=== PATIENT | male | born 1970 | race Caucasian/White ===

== ENCOUNTER 2016-06-04 18:25 | Inpatient (IN) | payer OTHER ==
[~2016-06-04] VITALS: Ht 167.6 cm; Wt 57.0 kg
[2016-06-04] MEDS ORDERED: PHEN100C4 PO (18:58)
[2016-06-04] MEDS ORDERED: THIA100T10 PO (18:58)
[2016-06-04] MEDS ORDERED: ATEN25TA PO (18:58)
[2016-06-04] MEDS ORDERED: MULT-82 PO (18:58)
[2016-06-04] MEDS ORDERED: NAPR220T77 PO (18:58)
[2016-06-04] MEDS ORDERED: LISI-170 PO (18:58)
[2016-06-04] MEDS ORDERED: OMEP-110 PO (18:58)
[2016-06-04] MEDS ORDERED: FOLI-17 PO (18:58)
[2016-06-04] MEDS ORDERED: KETOROLAC 30 MG/1 ML IM ONE (19:00)
[2016-06-04] MEDS ORDERED: CYCLOBENZAPRINE 10 MG TABLET PO ONE (19:00)
[2016-06-04] MEDS ORDERED: KETOROLAC 30 MG/1 ML ONE (19:02)
[2016-06-04 19:03] LABS: HEMOGLOBIN 14.5 g/dL (13.7-18.0)
[2016-06-04] MEDS ORDERED: CYCLOBENZAPRINE 10 MG TABLET ONE (19:03)
[2016-06-04 19:13] LABS: ASPARTATE AMINO TRANSFERASE 121 U/L (15-37); BLOOD UREA NITROGEN 4 mg/dL (7-18)
[2016-06-04] MEDS ORDERED: SODIUM CHLORIDE 0.9% 1,000 ML IV SCH (19:52)
[2016-06-04] MEDS ORDERED: ACETAMINOPHEN 325 MG TABLET PO PRN (20:00)
[2016-06-04] MEDS ORDERED: SODIUM CHLORIDE 0.9% 1,000 ML IV ONE (20:00)
[2016-06-04] MEDS ORDERED: CYCLOBENZAPRINE 10 MG TABLET PO PRN (20:00)
[2016-06-04] MEDS ORDERED: KETOROLAC 30 MG/1 ML IVPush PRN (20:00)
[2016-06-04] MEDS ORDERED: ONDANSETRON 2MG/ML, 2ML IVP PRN (20:00)
[2016-06-04] MEDS ORDERED: HEPARIN 5,000 UNITS/ML, 1ML ONE (20:32)
[2016-06-04] MEDS: HEPARIN 5,000 UNITS/ML, 1ML SQ SCH (20:33)
[2016-06-04] MEDS: PHENYTOIN 100 MG CAPSULE PO SCH (21:00)
[2016-06-04 22:00] VITALS: BP 134/89
[2016-06-04] MEDS: LORazepam 2 MG/ML, 1ML IVPush PRN (23:56)
[2016-06-05] MEDS ORDERED: TEMAZEPAM 15 MG CAPSULE PO ONE (00:30)
[2016-06-05] MEDS: SODIUM CHLORIDE 3% 500 ML IV SCH ×3 (00:36→22:01)
[2016-06-05 02:01] VITALS: BP 119/78
[2016-06-05 04:07] LABS: ASPARTATE AMINO TRANSFERASE 96 U/L (15-37); BLOOD UREA NITROGEN 5 mg/dL (7-18)
[2016-06-05 04:22] LABS: HEMOGLOBIN 12.3 g/dL (13.7-18.0)
[2016-06-05] MEDS: HEPARIN 5,000 UNITS/ML, 1ML SQ SCH ×3 (04:45→21:09)
[2016-06-05] MEDS: PHENYTOIN 100 MG CAPSULE PO SCH ×4 (06:00→21:00)
[2016-06-05] MEDS: LORazepam 2 MG/ML, 1ML IVPush PRN ×3 (06:21→18:37)
[2016-06-05 07:57] VITALS: BP 122/81
[2016-06-05] MEDS: LISINOPRIL 20 MG TABLET PO SCH (08:50)
[2016-06-05] MEDS: ATENOLOL 25 MG TABLET PO SCH (08:50)
[2016-06-05] MEDS: CYANOCOBALAMIN 1,000 MCG TABLET PO SCH (08:50)
[2016-06-05] MEDS: THIAMINE 100MG TABLET PO SCH (08:50)
[2016-06-05] MEDS: FOLIC ACID 1 MG TABLET PO SCH (08:50)
[2016-06-05] MEDS: MULTIVITAMIN 1 TABLET PO SCH (08:50)
[2016-06-05 10:39] LABS: POTASSIUM,URINE RANDOM 26 mmol/L
[2016-06-05 13:58] VITALS: BP 129/86
[2016-06-05] MEDS ORDERED: ERGOCALCIFEROL 50,000 UNIT CAPSULE PO SCH (15:30)
[2016-06-05] MEDS: HYDROcodone/APAP 5/325 TABLET PO PRN (16:01)
[2016-06-05 19:27] VITALS: BP 127/87
[2016-06-06] MEDS: LORazepam 2 MG/ML, 1ML IVPush PRN ×2 (00:57→10:02)
[2016-06-06 01:11] VITALS: BP 142/90
[2016-06-06] MEDS: PHENYTOIN 100 MG CAPSULE PO SCH (05:25)
[2016-06-06] MEDS: HEPARIN 5,000 UNITS/ML, 1ML SQ SCH (05:25)
[2016-06-06 05:52] LABS: BLOOD UREA NITROGEN 6 mg/dL (7-18)
[2016-06-06 05:56] LABS: ASPARTATE AMINO TRANSFERASE 71 U/L (15-37)
[2016-06-06 06:55] VITALS: BP 136/86
[2016-06-06] MEDS: CYANOCOBALAMIN 1,000 MCG TABLET PO SCH (08:40)
[2016-06-06] MEDS: THIAMINE 100MG TABLET PO SCH (08:40)
[2016-06-06] MEDS: MULTIVITAMIN 1 TABLET PO SCH (08:41)
[2016-06-06] MEDS: ATENOLOL 25 MG TABLET PO SCH (08:41)
[2016-06-06] MEDS: LISINOPRIL 20 MG TABLET PO SCH (08:41)
[2016-06-06] MEDS: FOLIC ACID 1 MG TABLET PO SCH (08:41)
[2016-06-06] MEDS: HYDROcodone/APAP 5/325 TABLET PO PRN (08:46)
[2016-06-06] MEDS: SODIUM CHLORIDE 3% 500 ML IV SCH (09:03)
== END 2016-06-06 10:35 | disposition left against medical advice (07) | DRG 641 ==
LOC: ED 19:29 → SUATTDRO 19:51 → EDIP 19:52 → OBSVTOIN 19:54 → 3NE 22:00
PROC: 0T9B70Z Drainage of Bladder with Drainage Device, Via Natural or Artificial Opening (ICD-10-PCS; principal; 2016-06-05)
DX: E87.1 Hypo-osmolality and hyponatremia (principal); S22.41XA Multiple fractures of ribs, right side, initial encounter for closed fracture; I10 Essential (primary) hypertension; D75.89 Other specified diseases of blood and blood-forming organs; G40.909 Epilepsy, unspecified, not intractable, without status epilepticus; G89.11 Acute pain due to trauma; K70.9 Alcoholic liver disease, unspecified; F10.20 Alcohol dependence, uncomplicated; D69.59 Other secondary thrombocytopenia; Z53.21 Procedure and treatment not carried out due to patient leaving prior to being seen by health care provider; W01.190A Fall on same level from slipping, tripping and stumbling with subsequent striking against furniture, initial encounter; Y93.89 Activity, other specified; Y92.89 Other specified places as the place of occurrence of the external cause; Y99.8 Other external cause status; Z82.49 Family history of ischemic heart disease and other diseases of the circulatory system; Z80.1 Family history of malignant neoplasm of trachea, bronchus and lung; Z79.899 Other long term (current) drug therapy; Z91.81 History of falling
CPT/HCPCS: 36415; 71020; 80053; 80185; 81001; 82306; 82436; 83690; 83930; 83935; 84133; 84295; 84300; 85025; 87086; 93005; 96360; 96372; J1644; J1885; J2405; G0378; J2060; J7030

== ENCOUNTER 2016-08-23 14:05 | Inpatient (IN) | payer OTHER ==
[~2016-08-23] VITALS: Ht 170.2 cm; Wt 56.2 kg
[~2016-08-23 14:05] MED LIST: ATEN25TA PO; FOLI-17 PO; LISI-170 PO; MULT-82 PO; NAPR220T77 PO; OMEP-110 PO; PHEN100C4 PO; THIA100T10 PO
[2016-08-23] MEDS ORDERED: SODIUM CHLORIDE 0.9% 1,000 ML IV ONE (15:06)
[2016-08-23] MEDS ORDERED: SODIUM CHLORIDE 0.9% 1,000ML IVBOLUS ONE (15:30)
[2016-08-23] MEDS ORDERED: SODIUM CHLORIDE FLUSH 10ML SYR IVF ONE (15:30)
[2016-08-23 15:35] LABS: ASPARTATE AMINO TRANSFERASE 107 U/L (15-37); BLOOD UREA NITROGEN 4 mg/dL (7-18)
[2016-08-23] MEDS ORDERED: LORazepam 2 MG/ML, 1ML ONE (17:42)
[2016-08-23] MEDS ORDERED: PHENYTOIN SODIUM 600 MG in SODIUM CHLORIDE 0.9% 100 ML IVPB ONE (18:00)
[2016-08-23] MEDS ORDERED: LORazepam 2 MG/ML, 1ML IVPush ONE (18:00)
[2016-08-23 18:10] LABS: DAU SCREEN DISCLAIMER
[2016-08-23 18:26] LABS: ACETAMINOPHEN < 2 mcg/mL (10-30); BLOOD UREA NITROGEN 4 mg/dL (7-18)
[2016-08-23] MEDS ORDERED: FILTER 0.22 MICRON IV PRN (18:30)
[2016-08-23] MEDS ORDERED: LACTULOSE 20 GM/30 ML UDC PO ONE (18:30)
[2016-08-23] MEDS ORDERED: SODIUM CHLORIDE FLUSH 10ML SYR IVF PRN (19:00)
[2016-08-23] MEDS ORDERED: ONDANSETRON 2MG/ML, 2ML IVPush PRN (19:30)
[2016-08-23] MEDS ORDERED: LORazepam 2 MG/ML, 1ML IV PRN ×4 (19:30)
[2016-08-23] MEDS ORDERED: LORazepam 1MG TABLET PO PRN ×3 (19:30)
[2016-08-23] MEDS ORDERED: morphine SULFATE 10 MG/ML, 1ML IVPush PRN (19:30)
[2016-08-23] MEDS ORDERED: LORazepam 0.5MG TABLET PO PRN (19:30)
[2016-08-23] MEDS ORDERED: OXYcodone IR 5MG TABLET PO PRN (19:30)
[2016-08-23] MEDS: LACTULOSE 10 GM/15 ML UDC PO SCH (20:44)
[2016-08-23] MEDS: NS + 20MEQ KCL 1,000 ML IV SCH (20:45)
[2016-08-23] MEDS: ENOXAPARIN 40 MG/0.4 ML SQ SCH (20:45)
[2016-08-23 20:52] VITALS: BP 106/74
[2016-08-24 02:00] VITALS: BP 124/88
[2016-08-24] MEDS: NS + 20MEQ KCL 1,000 ML IV SCH (03:35)
[2016-08-24 05:24] LABS: ASPARTATE AMINO TRANSFERASE 71 U/L (15-37); BLOOD UREA NITROGEN 4 mg/dL (7-18)
[2016-08-24 06:37] LABS: DIFF TOTAL CELLS COUNTED 100 CELL DIFF
[2016-08-24 06:40] LABS: ANISOCYTOSIS 1+; VERIFY COUNTS? YES
[2016-08-24 08:05] VITALS: BP 132/88
[2016-08-24] MEDS: LACTULOSE 10 GM/15 ML UDC PO SCH ×2 (08:41→20:29)
[2016-08-24] MEDS: THIAMINE 100MG TABLET PO SCH (08:41)
[2016-08-24] MEDS: FOLIC ACID 1 MG TABLET PO SCH (08:41)
[2016-08-24] MEDS: MULTIVITAMINS/MINERALS TABLET PO SCH (08:41)
[2016-08-24] MEDS ORDERED: LORazepam 2 MG/ML, 1ML IVPush PRN (11:00)
[2016-08-24] MEDS: PHENYTOIN 100 MG CAPSULE PO SCH ×3 (11:12→22:40)
[2016-08-24] MEDS: ATENOLOL 25 MG TABLET PO SCH (11:12)
[2016-08-24] MEDS: OMEPRAZOLE 20 MG CAPSULE.DR PO SCH (11:12)
[2016-08-24 12:35] VITALS: BP 145/92
[2016-08-24] MEDS: BACLOFEN 10 MG TABLET PO SCH ×3 (13:55→20:29)
[2016-08-24 18:31] VITALS: BP 125/88
[2016-08-24] MEDS: ENOXAPARIN 40 MG/0.4 ML SQ SCH (20:28)
[2016-08-25 03:12] VITALS: BP 122/79
[2016-08-25] MEDS: ATENOLOL 25 MG TABLET PO SCH (06:09)
[2016-08-25] MEDS: PHENYTOIN 100 MG CAPSULE PO SCH ×2 (06:09→10:33)
[2016-08-25 06:16] LABS: BLOOD UREA NITROGEN 3 mg/dL (7-18)
[2016-08-25 07:40] VITALS: BP 115/72
[2016-08-25] MEDS: THIAMINE 100MG TABLET PO SCH (08:35)
[2016-08-25] MEDS: MULTIVITAMINS/MINERALS TABLET PO SCH (08:36)
[2016-08-25] MEDS: FOLIC ACID 1 MG TABLET PO SCH (08:36)
[2016-08-25] MEDS: OMEPRAZOLE 20 MG CAPSULE.DR PO SCH (08:36)
[2016-08-25] MEDS: BACLOFEN 10 MG TABLET PO SCH (08:36)
[2016-08-25] MEDS: LACTULOSE 10 GM/15 ML UDC PO SCH (08:39)
== END 2016-08-25 13:27 | disposition home or self-care (01) | DRG 442 ==
LOC: ED 14:47 → SUATTDRO 18:35 → EDIP 19:01 → 4WST 20:03
PROVIDERS: ADMIT Family Medicine; ATTEND Family Medicine
DX: K72.90 Hepatic failure, unspecified without coma (principal); F10.239 Alcohol dependence with withdrawal, unspecified; E87.1 Hypo-osmolality and hyponatremia; G40.909 Epilepsy, unspecified, not intractable, without status epilepticus; D50.9 Iron deficiency anemia, unspecified; I10 Essential (primary) hypertension; D53.9 Nutritional anemia, unspecified; F41.9 Anxiety disorder, unspecified; Z79.899 Other long term (current) drug therapy
CPT/HCPCS: 36415; 70450; 71010; 80048; 80053; 80185; 80307; 80329; 82040; 82140; 82962; 83735; 84100; 85025; 93005; 96361; 96365; 96375; J1165; J1650; J3480; G0480; J2060; J7030

== ENCOUNTER 2017-10-13 10:16 | Emergency (ER) | payer OTHER ==
[~2017-10-13] VITALS: Ht 170.2 cm; Wt 54.3 kg
[~2017-10-13 10:16] MED LIST changes: +MULT-224 PO; -MULT-82 PO
[2017-10-13] MEDS ORDERED: SODIUM CHLORIDE 0.9% 1,000ML IVBOLUS ONE ×2 (12:00→14:30)
[2017-10-13] MEDS ORDERED: SODIUM CHLORIDE FLUSH 10ML SYR IVF ONE (12:00)
[2017-10-13 12:16] LABS: BASOPHILS # (AUTO) 0.08 x10^3/uL (0-0.1); BASOPHILS % (AUTO) 1 % (0-1); EOSINOPHILS # (AUTO) 0.13 x10^3/uL (0-0.4); EOSINOPHILS % (AUTO) 2 % (1-7); LYMPHOCYTES # (AUTO) 1.12 x10^3/uL (1-3.4); LYMPHOCYTES % (AUTO) 13 % (22-44); MD NO; MEAN CORPUSCULAR HEMOGLOBIN 37.4 pg (27.5-34.5); MEAN CORPUSCULAR HGB CONC 34.7 g/dL (33.2-36.2); MEAN CORPUSCULAR VOLUME 107.8 fL (81-97); MEAN PLATELET VOLUME 9.4 fL (7.4-10.4); MONOCYTES # (AUTO) 1.17 x10^3/uL (0.2-0.8); MONOCYTES % (AUTO) 13 % (2-9); NEUTROPHILS # (AUTO) 6.37 x10^3/uL (1.8-6.8); NEUTROPHILS % (AUTO) 72 % (42-75); PLATELET COUNT 109 x10^3/uL (130-400); RED BLOOD COUNT 3.94 x10^6/uL (4.38-5.82); RED CELL DISTRIBUTION WIDTH 12.9 % (9.4-14.8)
[2017-10-13 12:29] LABS: ALANINE AMINOTRANSFERASE 40 U/L (12-78); ALBUMIN 3.6 g/dL (3.4-5.0); ANION GAP 13 mmol/L (5-15); CALCIUM 8.4 mg/dL (8.5-10.1); CHLORIDE 87 mmol/L (98-107)
[2017-10-13 12:31] LABS: ALKALINE PHOSPHATASE 178 U/L (45-117); BILIRUBIN,TOTAL 1.5 mg/dL (0.2-1.0); CREATININE 0.87 mg/dL (0.7-1.3)
[2017-10-13] MEDS ORDERED: POTASSIUM CHLORIDE 20 MEQ TAB.ER.PRT ONE (12:49)
[2017-10-13] MEDS ORDERED: POTASSIUM CHLORIDE 20 MEQ in SODIUM CHLORIDE 0.9% 250 ML IV ONE (13:00)
[2017-10-13] MEDS ORDERED: POTASSIUM CHLORIDE 20 MEQ TAB.ER.PRT PO ONE (13:00)
[2017-10-13] MEDS ORDERED: ONDANSETRON 2MG/ML, 2ML IVPush ONE (13:00)
[2017-10-13] MEDS ORDERED: ONDANSETRON ODT 4 MG ONE ×2 (13:24→13:26)
[2017-10-13] MEDS ORDERED: ONDANSETRON ODT 8 MG PO ONE (13:30)
[2017-10-13 15:06] VITALS: BP 119/89
== END 2017-10-13 15:07 | disposition home or self-care (01) ==
LOC: ED 12:20
DX: R11.2 Nausea with vomiting, unspecified (principal); E87.6 Hypokalemia; E83.42 Hypomagnesemia; I10 Essential (primary) hypertension; Z79.899 Other long term (current) drug therapy
CPT/HCPCS: 36415; 74021; 76700; 80053; 80307; 83690; 83735; 85025; 96361; 96374; 99285; J3480; J7030; J7050; Q0162